=== PATIENT | male | born 1985 | race Caucasian/White ===

== ENCOUNTER 2019-10-28 21:22 | Emergency (ER) | payer SELFPAY ==
[~2019-10-28] VITALS: Ht 188 cm; Wt 98.0 kg
[2019-10-28 21:33] VITALS: BP 138/86
[2019-10-28] MEDS ORDERED: DIPHENHYDRAMINE 25MG CAPSULE PO ONE (22:15)
[2019-10-28] MEDS ORDERED: PERMETHRIN 5% CREAM 60GM TOP ONE (22:15)
== END 2019-10-29 10:32 | disposition home or self-care (01) ==
LOC: ER 21:22
DX: B86 Scabies (principal)
CPT/HCPCS: 99283; Q0163